=== PATIENT | male | born 1955 | race Hispanic/Latino ===

== ENCOUNTER 2018-11-09 08:03 | Day surgery (SDC) | payer OTHER ==
[~2018-11-09] VITALS: Ht 167.6 cm; Wt 105.2 kg
[~2018-11-09 08:03] MED LIST: AEC81 PO; ATOR20TA65 PO; BUDE10.2 IH; ERGO2000 PO; LISI10TA7 PO; OMEG1050 PO; SODIUM CHLORIDE 0.9% 1000ML 1,000 ML IV ONE; TIOT18CA3 IH
[2018-11-09 08:40] VITALS: BP 145/80
[2018-11-09] MEDS ORDERED: LIDOCAINE HCL-MPF 2% 5ML VIAL ONE (09:06)
[2018-11-09] MEDS ORDERED: PROPOFOL 1000 MG/100 ML 100 ML IV ONE (09:06)
[2018-11-09 09:17] VITALS: BP 105/60
[2018-11-09 09:23] VITALS: BP 128/62
[2018-11-09 09:27] VITALS: BP 133/61
[2018-11-09 09:31] VITALS: BP 126/66
[2018-11-09 09:38] VITALS: BP 119/63
== END 2018-11-09 09:45 | disposition home or self-care (01) ==
LOC: ENDO 08:03 → DAH 08:03 → ENDO 09:45
PROVIDERS: ATTEND Internal Medicine
DX: Z12.11 Encounter for screening for malignant neoplasm of colon (principal); D12.3 Benign neoplasm of transverse colon; Z68.37 Body mass index [BMI] 37.0-37.9, adult; J44.9 Chronic obstructive pulmonary disease, unspecified; E78.5 Hyperlipidemia, unspecified; Z98.890 Other specified postprocedural states; Z79.899 Other long term (current) drug therapy; Z83.3 Family history of diabetes mellitus; Z86.010 Personal history of colon polyps; K57.30 Diverticulosis of large intestine without perforation or abscess without bleeding; K63.89 Other specified diseases of intestine
CPT/HCPCS: 45380; 93005; A4606; J2704; J3490; J7030